=== PATIENT | male | born 1960 | race Caucasian/White ===

== ENCOUNTER 2020-11-08 12:58 | Inpatient (IN) | payer OTHER ==
[~2020-11-08] VITALS: Ht 180.3 cm; Wt 91.2 kg
--- NOTE | 2020-11-08 13:42 | NUR ---
PT PRESENTS TO ED WITH C/O PERIRECTAL ABSCESS PER UC VISIT TODAY. PT HAS A HISTORY OF HEMORRHOIDS AND STATES THE PAIN HAS INCREASED THE LAST FEW DAYS. PT STATES PAIN IS CURRENTLY 6/10. PT A&O, RESPS EVEN & UNLABORED, NADN. MONITORS IN PLACE, CALL LIGHT IN REACH, WARM BLANKET PROVIDED.
[2020-11-08 14:14] LABS: BASOPHILS % (AUTO) 0 % (0-1); EOSINOPHILS % (AUTO) 0 % (1-7); LYMPHOCYTES % (AUTO) 6 % (22-44); MEAN CORPUSCULAR HEMOGLOBIN 29.5 pg (27.5-34.5); MEAN CORPUSCULAR HGB CONC 33.5 g/dL (33.2-36.2); MEAN PLATELET VOLUME 6.6 fL (7.4-10.4); MONOCYTES % (AUTO) 10 % (2-9); NEUTROPHILS % (AUTO) 83 % (42-75); PLATELET COUNT 290 x10^3/uL (130-400); RED BLOOD COUNT 4.55 x10^6/uL (4.38-5.82); RED CELL DISTRIBUTION WIDTH 13.1 % (9.4-14.8)
[2020-11-08 14:26] LABS: ALBUMIN 3.2 g/dL (3.4-5.0); ANION GAP 4 mmol/L (5-15); CHLORIDE 102 mmol/L (98-107); CREATININE 1.14 mg/dL (0.7-1.3)
--- NOTE | 2020-11-08 14:27 | NUR ---
PT STATES NO PAIN AT THIS TIME. PIV PLACED. AWAITING LAB RESULTS AND CT. PT SITTING COMFORTABLY IN BED, NADN, MONITORS IN PLACE, CALL LIGHT IN REACH.
[2020-11-08] MEDS ORDERED: SODIUM CHLORIDE FLUSH 10ML SYR IVF ONE (14:30)
--- NOTE | 2020-11-08 14:47 | NUR ---
pt to ct
[2020-11-08 14:49] LABS: MD SCAN
[2020-11-08] MEDS ORDERED: OMNIPAQUE 350 MG/ML, 100ML BOTTLE ONE (14:59)
--- NOTE | 2020-11-08 15:00 | NUR ---
BREAK RN: PT RETURNED FROM CT, UPRIGHT ON GURNEY AWAKE & COMFORTABLE, RESPONDS APPROP TO STAFF, MONITORS IN PLACE, NO NEEDS AT THIS TIME, CALL LIGHT WITHIN REACH.
--- NOTE | 2020-11-08 15:36 | NUR ---
DERRICK DALE AND MARS CAIN NOTIFIED PT MEETING CRITERIA FOR SEPSIS (TACHYCARDIA, ELEVATED WBC, FEVER, SUSPECTED INFECTION). BOTH PROVIDERS DECLINE TO ORDER SEPSIS ORDER SET AT THIS TIME, PROVIDERS AWAITING GEN SURG CONSULT AT THIS TIME.
[2020-11-08] MEDS ORDERED: PIPERACILLIN/TAZO/PMX 3.375GM 50 ML ONE (15:55)
[2020-11-08] MEDS ORDERED: LIDOCAINE-MPF 2% ,5ML ONE (15:55)
[2020-11-08] MEDS ORDERED: VANCOMYCIN PER PHARMACY MC ONE (16:00)
[2020-11-08] MEDS ORDERED: PIPERACILLIN/TAZO 3.375 GM in DEXTROSE 5% 50 ML IVPB ONE (16:00)
[2020-11-08] MEDS ORDERED: SODIUM CHLORIDE 0.9% 1,000ML IVBOLUS ONE (16:00)
[2020-11-08] MEDS ORDERED: VANCOMYCIN 1,700 MG in SODIUM CHLORIDE 0.9% 250 ML IV ONE (16:00)
[2020-11-08] MEDS ORDERED: LIDOCAINE 2%, 20ML INFIL ONE (16:00)
--- NOTE | 2020-11-08 16:30 | NUR ---
I&D COMPLETED AT BEDSIDE BY MD TORIBIO, PT PROVIDED WITH INFORMED CONSENT, PAPERWORK SIGNED BY MD AND PT PRIOR TO PROCEDURE. PT TOLERATED WELL. ALL MONITORS IN PLACE THROUGHOUT I&D, NO SEDATION REQUIRED. I&D COMPLETED WITH LOCALIZED ANESTHETIC.
[2020-11-08] MEDS ORDERED: ATEN50TA41 PO (17:21)
[2020-11-08] MEDS ORDERED: TRIA1CAP3 PO (17:24)
[2020-11-08] MEDS ORDERED: MESA1.2T PO (17:25)
[2020-11-08] MEDS ORDERED: VANCOMYCIN PER PHARMACY MC PRN (17:30)
[2020-11-08] MEDS ORDERED: LACTATED RINGERS 1,000 ML IV SCH (17:30)
[2020-11-08] MEDS ORDERED: morphine SULFATE 10 MG/ML, 1ML IVPush PRN (17:30)
[2020-11-08] MEDS ORDERED: ONDANSETRON 2MG/ML, 2ML IVPush PRN (17:30)
[2020-11-08] MEDS ORDERED: OXYcodone/APAP 5/325MG TABLET PO PRN (17:30)
[2020-11-08] MEDS ORDERED: ONDANSETRON ODT 4 MG PO PRN (17:30)
--- NOTE | 2020-11-08 17:36 | NUR ---
PT UPDATED W POC. IV ABX INFUSING PER EMAR. ABX HUNG AFTER BLOOD CULTURES DRAWN X2. PT A&O, RESPS EVEN AND UNLABORED, MONITORS IN PLACE, HOSPITALIST AT BS.
--- NOTE | 2020-11-08 17:46 | NUR ---
REPORT GIVEN TO RECEIVING SATYA ROSALES
[2020-11-08] MEDS ORDERED: ATENOLOL 50 MG TABLET PO SCH (18:00)
[2020-11-08 18:15] VITALS: BP 152/79
[2020-11-08] MEDS ORDERED: ENOXAPARIN 40 MG/0.4 ML SQ SCH (18:30)
[2020-11-08] MEDS ORDERED: PIPERACILLIN/TAZO 3.375 GM in DEXTROSE 5% 50 ML IVPB SCH (18:30)
[2020-11-08] MEDS ORDERED: VANCOMYCIN 2,200 MG in SODIUM CHLORIDE 0.9% 500 ML IV ONE (19:00)
[2020-11-08] MEDS ORDERED: PHARMACOKINETIC CONSULTATION MC ONE (19:00)
[2020-11-08] MEDS ORDERED: PHARMACOKINETIC MONITORING MC PRN (19:00)
[2020-11-09] MEDS: PIPERACILLIN/TAZO 3.375 GM in DEXTROSE 5% 50 ML IVPB SCH ×2 (00:41→08:18)
[2020-11-09 01:15] VITALS: BP 116/70
[2020-11-09 05:55] LABS: BASOPHILS % (AUTO) 1 % (0-1); EOSINOPHILS % (AUTO) 1 % (1-7); LYMPHOCYTES % (AUTO) 7 % (22-44); MEAN CORPUSCULAR HEMOGLOBIN 29.4 pg (27.5-34.5); MEAN CORPUSCULAR HGB CONC 33.2 g/dL (33.2-36.2); MEAN PLATELET VOLUME 6.8 fL (7.4-10.4); MONOCYTES % (AUTO) 12 % (2-9); NEUTROPHILS % (AUTO) 80 % (42-75); PLATELET COUNT 289 x10^3/uL (130-400); RED CELL DISTRIBUTION WIDTH 13.1 % (9.4-14.8)
[2020-11-09 06:13] LABS: CHLORIDE 105 mmol/L (98-107)
[2020-11-09 06:21] LABS: ANION GAP 5 mmol/L (5-15); CALCIUM 8.8 mg/dL (8.5-10.1); CREATININE 1.16 mg/dL (0.7-1.3)
[2020-11-09 06:28] LABS: MD SCAN
[2020-11-09 06:47] VITALS: BP_SYST 128; BP_SYST 148; BP_DIAS 65; BP_DIAS 81
[2020-11-09] MEDS ORDERED: TRIAMTERENE-HCTZ 37.5/25 MG TABLET PO SCH (09:00)
[2020-11-09] MEDS ORDERED: AMOX1TAB64 PO (10:06)
[2020-11-09] MEDS ORDERED: VANCOMYCIN 1,800 MG in SODIUM CHLORIDE 0.9% 250 ML IV SCH (13:00)
== END 2020-11-09 13:10 | disposition home or self-care (01) | DRG 854 ==
LOC: SUATTDRO 17:06 → ED 17:09 → EDIP 18:05 → 3N 18:06 → DCLOUNGE 11-09 13:06
PROVIDERS: ADMIT Family Medicine; ATTEND Family Medicine
PROC: 0D9P0ZZ Drainage of Rectum, Open Approach (ICD-10-PCS; principal; 2020-11-08)
DX: A41.9 Sepsis, unspecified organism (principal); D84.9 Immunodeficiency, unspecified; K50.90 Crohn's disease, unspecified, without complications; K61.2 Anorectal abscess; I10 Essential (primary) hypertension; K62.89 Other specified diseases of anus and rectum; L71.9 Rosacea, unspecified
CPT/HCPCS: 36415; 74177; 80048; 82040; 83605; 83735; 85025; 87040; 87070; 87205; 99285; G0378; J1650; J2543; J3370; Q9967; J7040; J7120